=== PATIENT | female | born 1990 | race Caucasian/White ===

== ENCOUNTER → 2017-04-30 | Outpatient (CLI) | payer BC | LOC: COL.RAD 12:20 | DX: N20.0 Calculus of kidney (principal); R31.0 Gross hematuria; N13.30 Unspecified hydronephrosis; Z96.0 Presence of urogenital implants ==

== ENCOUNTER 2017-09-07 08:58 | Day surgery (SDC) | payer BC ==
[~2017-09-07] VITALS: Ht 160 cm; Wt 64.8 kg
[2017-09-07 09:25] VITALS: BP 111/64; PULSE 69; TEMP 97.8
[2017-09-07] MEDS ORDERED: HCTZ12.5TAB PO (09:43)
[2017-09-07] MEDS ORDERED: UROCIT-K 5540 MG/TAB PO (09:44)
[2017-09-07] MEDS ORDERED: NATURE'S BLEN1200 MG PO (09:45)
[2017-09-07] MEDS ORDERED: TYLENOL 325MG325 MG PO (09:46)
[2017-09-07 12:28] VITALS: TEMP 98.6
[2017-09-07 12:45] VITALS: BP 110/65; PULSE 73
[2017-09-07] MEDS ORDERED: NORCO 325 MG-51 TAB PO (12:49)
[2017-09-07] MEDS ORDERED: PYRIDIUM 100MG100 MG PO (12:50)
[2017-09-07] MEDS ORDERED: COLACE 100100 MG/CAP PO (12:50)
[2017-09-07 13:00] VITALS: BP 104/69; PULSE 72
[2017-09-07 13:15] VITALS: BP 104/66; PULSE 77
[2017-09-07 13:45] VITALS: BP 117/59; PULSE 93
== END 2017-09-07 14:30 | disposition home or self-care (01) ==
LOC: SDCO 08:58
DX: N20.2 Calculus of kidney with calculus of ureter (principal); D64.9 Anemia, unspecified; Z88.5 Allergy status to narcotic agent; Z87.891 Personal history of nicotine dependence; Z82.49 Family history of ischemic heart disease and other diseases of the circulatory system; Z83.3 Family history of diabetes mellitus; Z84.1 Family history of disorders of kidney and ureter; Z80.1 Family history of malignant neoplasm of trachea, bronchus and lung
CPT/HCPCS: C1769; C2617; J0690; J1100; J1170; J1885; J1940; J2405; J2704; J3010; J7120; Q9967